=== PATIENT | female | born 1975 | race Caucasian/White ===

== ENCOUNTER 2016-08-03 17:39 | Emergency (ER) | payer MEDICAID ==
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
[2016-08-03] MEDS: LORazepam 2 MG/ML VIAL IM ONE (17:50)
[2016-08-03 18:31] VITALS: BP 128/68
== END 2016-08-03 18:30 | disposition home or self-care (01) ==
LOC: ED 17:39
DX: F41.9 Anxiety disorder, unspecified (principal)
CPT/HCPCS: 96372; 99283; J2060